=== PATIENT | female | born 1980 | race Caucasian/White ===

== ENCOUNTER 2025-07-01 11:58 | Emergency (ER) | payer OTHER, SELFPAY ==
[2025-07-01 12:01] VITALS: BP 190/110
[2025-07-01 12:35] VITALS: BMI 35.6
--- NOTE | 2025-07-01 13:55 | EDRN ---
Lidya CURIEL in room w/pt at this time.
--- NOTE | 2025-07-01 14:01 | ED.GENMED ---
History of Present Illness
General
Chief Complaint: Abdominal Symptoms
Source: patient
Exam Limitations: none
Time Seen by Provider: 07/01/25 13:51
Nursing documentation reviewed up to this point in time: agreed with
History of Present Illness
History of Present Illness:
45-year-old female with no significant past medical history presenting with a chief complaint of lower abdominal pain described as pressure over the last couple of days. She reports the discomfort as intermittent, with episodes that come and go.
This morning at approximately 8:00 AM, while preparing to shower, she experienced a sudden increase in pain located predominantly on left side, causing her to feel the need to bend over slightly to alleviate it. The intense pain lasted only a few
seconds, but a mild residual pressure remained. She likens this discomfort to ovulation pain. The patient denies nausea, vomiting, diarrhea, constipation, or urinary burning, frequency, or urgency, though she mentions having a sensation of needing
to urinate after just having urinated about 15 minutes ago. Llast menstrual period was on May 31, normal BM this morning.
Past History
Past History
ED Past Medical History: None
ED Past Surgical History: None
Social History
Tobacco: Non-smoker
Alcohol: None
Personal:
Living: with family
Employment: Employed
Review of Systems
Review of Systems
Allergies reviewed?: Yes
All Other Systems: ROS reviewed and negative except as documented in HPI and ROS
Constitutional: Denies fever
Respiratory: Denies trouble breathing
Cardiac: Denies chest pain
ABD/GI: Reports abdominal pain; Denies nausea, vomiting, diarrhea, constipated or anorexia
: Denies dysuria, frequency, flank pain, difficulty voiding or urgency
Musculoskeletal: Reports no symptoms
Skin: Reports no symptoms
Neurological: Reports no symptoms
Phy Exam
Physical Exam
Physical Exam:
GENERAL: No acute distress. A&Ox3.
CONSTITUTIONAL: Afebrile.
EYES: clear, conjunctivae normal
ENMT: moist mucus membranes, Pharynx nl
RESPIRATORY: Regular respirations, nonlabored, lungs clear.
CARDIOVASCULAR: Regular rate and rhythm, no murmurs, no rubs.
GI: Soft, nontender at this time, normal BS
MUSCULOSKELETAL: Moves with ease. Well perfused.
SKIN: Warm, dry, pink
PSYCH: Normal mood and affect. Well kept, interactive and appropriate
NEUROLOGIC: Awake, alert and oriented. No focal neurological deficits
Course
Orders/Labs/Results
Orders:
Orders
07/01/25 14:02
US Pelvis W Transvag Combined Urgent
Comment:
Reason For Exam: pain across lower abdomen
07/01/25 14:03
0.9% Sodium Chloride 1000 ml [Nss] 1,000 ml IV BOLUS
Test Result ONCE
07/01/25 14:24
Complete Blood Count/With Diff Urgent
Comprehensive Metabolic Panel Urgent
HCG, Serum Qualitative Screen Urgent
Lipase Urgent
Urinalysis Reflex To Culture Urgent
Date Specimen was Collected: 07/01/25
Time Specimen was Collected: 14:23
Urine Microscopic Reflex Cult Urgent
Abnormal Lab Results
07/01/25
14:24
Glucose 110 H mg/dl
(70-99)
Urine Ketones 1+ A
(Negative)
Ur Occult Blood Reflex 1+ A
(Negative)
07/01/25 14:24
07/01/25 14:24
Vital Signs
Initial and Last Documented VS:
Initial Vital Signs
Temp Pulse Resp BP Pulse Ox
98.4 F 140 16 190/110 100
07/01/25 12:01 07/01/25 12:01 07/01/25 12:01 07/01/25 12:01 07/01/25 12:01
Last Documented Vital Signs
Temp Pulse Resp BP Pulse Ox
98.4 F 90 16 125/66 100
07/01/25 12:01 07/01/25 14:15 07/01/25 14:15 07/01/25 14:15 07/01/25 14:15
MDM/Problems Addressed
Differential Diagnosis Includes:
The Differential Diagnosis includes, in no particular order and is not limited to:
1. Ovarian cyst
2. Urinary tract infection
3. Mittelschmerz (ovulation pain)
4. Gastroenteritis
5. Appendicitis
6. Pelvic inflammatory disease
7. Kidney stones
8. Endometriosis
9. Ectopic
10. Irritable bowel syndrome
MDM/Problems Addressed:
45-year-old female with no significant past medical history presenting with a chief complaint of lower abdominal pain described as pressure over the last couple of days. She reports the discomfort as intermittent, with episodes that come and go.
This morning at approximately 8:00 AM, while preparing to shower, she experienced a sudden increase in pain located predominantly on left side, causing her to feel the need to bend over slightly to alleviate it. The intense pain lasted only a few
seconds, but a mild residual pressure remained. She likens this discomfort to ovulation pain. The patient denies nausea, vomiting, diarrhea, constipation, or urinary burning, frequency, or urgency, though she mentions having a sensation of needing
to urinate after just having urinated about 15 minutes ago. Llast menstrual period was on May 31, normal BM this morning.
Plan:
1. Obtain a urine sample for urinalysis to rule out a urinary tract infection.
2. Conduct basic laboratory work and HCG
3. Administer intravenous fluids to ensure hydration and facilitate a full bladder for an ultrasound.
4. Perform an abdominal ultrasound to further investigate the cause of abdominal pain.
5. Encourage the patient to follow up with primary care and gynecological appointments as scheduled.
3:00 PM:
CBC normal
CMP normal
hCG negative
UA negative
4:30 PM:
Patient is awaiting ultrasound
Case discussed with Paige Corrales NP who will assume care from this point.
*Pulse Oximetry
SaO2: 100
Oxygen Mode of Delivery: Room air
ED Attending Note
-
Portions of this chart may have been created with voice recognition software.� Occasional wrong word or��sound alike� substitutions may have occurred due to the inherent limitations of voice recognition software.
Discharge Plan
Departure
Referrals:
Payal Esquivel PA-C [Family Provider]
Interventions
Interventions:
*Risk Screen - Suicide Last Done: 07/01/25 12:01
*General Assessment Last Done: 07/01/25 12:35
*Neglect/Abuse Screening Last Done: 07/01/25 12:01
*ED- Fall Risk Assessment Last Done: 07/01/25 12:35
*ED COVID-19 Vaccine History Last Done: 07/01/25 12:35
BZ-Iddncd-Rverioqtkj Assessment Last Done: 07/01/25 12:41
Discharge Date and Time
Print Language: EQUATORIAL GUINEAN
[2025-07-01 14:15] VITALS: BP 125/66
[2025-07-01] MEDS: NSS 1000 IV (14:22)
[2025-07-01 14:33] LABS: Urine Character Clear (Clear)
[2025-07-01 14:34] LABS: Hematocrit 43.0 % (37.0-47.0); Hemoglobin 14.2 g/dL (12.0-16.0); Mean Corp Hgb Conc. 33.0 g/dL (33.0-37.0); Mean Corpuscular Volume 89.0 fL (81.0-99.0); Nucleated Red Blood Cells % 0 %; Platelet Count 313 10^3/uL (130-400); Red Cell Dist. Width 13.0 % (11.5-14.5)
[2025-07-01 14:42] LABS: Urine Squamous Cell 16-20 /LPF (Few)
[2025-07-01 14:43] LABS: Urine Red Blood Cell 0-2 /HPF (0-2); Urine White Cell 0-2 /HPF (0-5)
[2025-07-01 14:46] LABS: HCG, Serum Qualitative Screen Negative
[2025-07-01 14:55] LABS: ALT (SGPT) 18 U/L (0-35); AST (SGOT) 20 U/L (14-36); Albumin 4.5 g/dl (3.5-5.0); Alkaline Phosphatase 66 U/L (38-126); Blood Urea Nitrogen 9 mg/dl (7-17); Calcium 9.5 mg/dl (8.4-10.2); Carbon Dioxide 29 mmol/L (22-30); Chloride 107 mmol/L (98-107); Estimated Creatinine Clearance > 125 ml/min; Glucose 110 mg/dl (70-99); Lipase 93 U/L (23-300); Potassium 4.5 mmol/L (3.5-5.1); Sodium 140 mmol/L (135-145); Total Protein 7.3 g/dl (6.3-8.2); eGFR > 60.00
== END 2025-07-01 19:06 | disposition home or self-care (01) ==
LOC: EMR 11:58
PROVIDERS: Registered Nurse; EMERGENCY PHYSICIAN Emergency Medicine; FAMILY PHYSICIAN Physician Assistant
DX: R10.30 Lower abdominal pain, unspecified (principal)
CPT/HCPCS: 99284; 76830; 76856; 80053; 81003; 81015; 83690; 84703; 85025

== ENCOUNTER 2025-08-10 07:24 | Emergency (ER) | payer OTHER, SELFPAY ==
[2025-08-10 07:32] VITALS: BP 150/91
--- NOTE | 2025-08-10 08:04 | ED.GENMED ---
History of Present Illness
General
Chief Complaint: Anxiety
Source: patient
Exam Limitations: none
Time Seen by Provider: 08/10/25 07:46
Nursing documentation reviewed up to this point in time: agreed with
History of Present Illness
History of Present Illness:
Patient is a 45-year-old female with past medical history of anxiety and mitral valve prolapse. 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 She has had chronic issues with
anxiety however has not had a primary care provider or therapist. She has never been evaluated for anxiety. She saw primary care physician yesterday for the first time and reviewed her anxiety problem with her. She was prescribed fluoxetine and
alprazolam. She did take a dose of fluoxetine last night for the first time. She was also given a prescription for an echocardiogram.
She presents to the ER because yesterday she felt very anxious throughout last night she describes feeling her heart racing she felt very hot and felt a lot of tension and stress. She felt numbness and tingling in her hands. She had no associated
shortness of breath. She has reports for' a long time' she has had chest pressure and felt this was from her mitral valve prolapse.
She did not take her present because she was concerned about taking fluoxetine along with this new medication.
Past History
Past History
ED Past Medical History: None
ED Past Surgical History: None
Social History
Tobacco: Non-smoker
Alcohol: None
Personal:
Living: with family
Employment: Employed
Phy Exam
General Physical Exam
General Presentation: no apparent distress
General age: appears stated age
General Skin: warm and dry
General Habitus: normal
General Mental: alert
General Hydration: appears well hydrated
Cardiovascular Exam
Cardiovascular Exam: regular rate/rhythm, no murmur and normal peripheral pulses
Pulmonary Exam
Pulmonary Exam: lungs clear and no respiratory distress
Neurological Exam
Neurological Exam: alert
Musculoskeletal Exam
Musculoskeletal Exam: full ROM
Skin Exam
Skin Exam: normal color and no petechia
Course
Orders/Labs/Results
Orders:
Orders
08/10/25 07:26
Electrocardiogram (*1) Urgent
Reason for Study: Bradycardia / Tachycardia
EKG- Treatment ONCE
08/10/25 08:07
Basic Metabolic Panel Urgent
Complete Blood Count/With Diff Urgent
TSH Reflex To Free T4 Urgent
Troponin I Urgent
Abnormal Lab Results
08/10/25
08:07
Chloride 108 H mmol/L
(98-107)
Glucose 109 H mg/dl
(70-99)
08/10/25 08:07
08/10/25 08:07
Vital Signs
Initial and Last Documented VS:
Initial Vital Signs
Temp Resp BP Pulse Ox
98.2 F 16 150/91 99
08/10/25 07:32 08/10/25 07:32 08/10/25 07:32 08/10/25 07:32
Last Documented Vital Signs
Temp Pulse Resp BP Pulse Ox
98.2 F 80 14 122/74 100
08/10/25 07:32 08/10/25 10:45 08/10/25 10:45 08/10/25 10:00 08/10/25 10:45
MDM/Problems Addressed
Differential Diagnosis Includes:
Not limited to acute panic attack, anxiety, less likely ACS, arrhythmia
MDM/Problems Addressed:
Symptoms are consistent with anxiety. Patient has chronic anxiety for years however has never had this addressed. As documented she did see a primary care provider yesterday for the first time and was started on fluoxetine and given a prescription
for alprazolam as needed. She has a history of mitral valve prolapse years ago and was also given a prescription for an echo by her primary care provider.
Symptoms are likely anxiety she is very anxious here on arrival she has no cardiac history and no known cardiac risk factors or family history. Cardiac troponin is negative labs unremarkable will check a TSH and plan to discharge home with
outpatient cardiology as she does have mitral valve prolapse and though has an echo scheduled has not seen cardiology since childhood.
Vitals are stable she has been monitored and remains in normal sinus rhythm here in the ER no arrhythmia.
Her is a patient of Dr. Hernandez and she would like to follow-up with her as well.
Chronic conditions affecting care:
Anxiety, after valve prolapse
*Pulse Oximetry
SaO2: 99
Oxygen Mode of Delivery: Room air
Patient hypoxic: no
*Critical Care Note
Total Time (30-74mins, 75-104mins- exclusive of procedures): Not Applicable
ED Attending Note
-
Portions of this chart may have been created with voice recognition software.� Occasional wrong word or��sound alike� substitutions may have occurred due to the inherent limitations of voice recognition software.
Discharge Plan
Departure
Patient Disposition: Home (Routine Discharge)
Date of Disposition: 08/10/25
Time of Disposition: 10:53
Patient with high blood pressure during this ER visit?: Yes
Condition: Fair
Covid-19: Not Applicable
Discharge Problem:
Heart palpitations, Anxiety
Instructions: Anxiety, Adult (DC), Palpitations - ED (DC), BLOOD PRESSURE
Referrals:
Adrianne Terrell CRNP [Family Provider, Internal Medicine]
Chandan Molina MD [Active, Cardiology]
Activity Restrictions/Additional Instructions:
As discussed, continue to take your prescribed fluoxetine daily. You may take alprazolam as needed as previously prescribed. Please continue to follow-up closely with your family doctor and therapist. In addition please follow-up with cardiology
for continued monitoring for palpitations.
please give the office a call today to schedule an appointment as soon as possible. Return if any worsening of symptoms. Avoid caffeine, alcohol, chocolate.
Interventions
Interventions:
*Risk Screen - Suicide Last Done: 08/10/25 07:32
*General Assessment Last Done: 08/10/25 07:51
*Neglect/Abuse Screening Last Done: 08/10/25 07:32
*ED- Fall Risk Assessment Last Done: 08/10/25 07:51
*ED COVID-19 Vaccine History Last Done: 08/10/25 07:51
ED-Psychological Assessment Last Done: 08/10/25 07:51
Discharge Date and Time
Print Language: AUSTRALIAN
[2025-08-10 08:05] VITALS: BP 126/79
[2025-08-10 08:21] LABS: Hematocrit 42.8 % (37.0-47.0); Hemoglobin 14.3 g/dL (12.0-16.0); Mean Corp Hgb Conc. 33.4 g/dL (33.0-37.0); Mean Corpuscular Volume 87.7 fL (81.0-99.0); Nucleated Red Blood Cells % 0 %; Platelet Count 296 10^3/uL (130-400); Red Cell Dist. Width 12.9 % (11.5-14.5)
[2025-08-10 08:57] LABS: Blood Urea Nitrogen 10 mg/dl (7-17); Calcium 9.2 mg/dl (8.4-10.2); Carbon Dioxide 26 mmol/L (22-30); Chloride 108 mmol/L (98-107); Glucose 109 mg/dl (70-99); Potassium 4.6 mmol/L (3.5-5.1); Sodium 139 mmol/L (135-145); Troponin I < 0.012 ng/ml; eGFR > 60.00
[2025-08-10 09:00] VITALS: BP 112/66
[2025-08-10 10:00] VITALS: BP 122/74
== END 2025-08-10 11:19 | disposition home or self-care (01) ==
LOC: EMR 07:24
PROVIDERS: Nurse Practitioner; EMERGENCY PHYSICIAN Emergency Medicine; FAMILY PHYSICIAN Nurse Practitioner Adult Health
DX: R00.2 Palpitations (principal); F41.9 Anxiety disorder, unspecified; I34.1 Nonrheumatic mitral (valve) prolapse
CPT/HCPCS: 99284; 80048; 84443; 84484; 85025; 93005

== ENCOUNTER → 2025-08-11 07:03 | Outpatient (REF) | payer OTHER, SELFPAY | LOC: HWRCS 07:03 | PROVIDERS: ATTENDING PHYSICIAN Nurse Practitioner Adult Health | DX: Z86.79 Personal history of other diseases of the circulatory system (principal); R00.2 Palpitations | CPT/HCPCS: 93306 ==

== ENCOUNTER → 2025-08-17 10:00 | Outpatient (REF) | payer OTHER, SELFPAY | LOC: RCS 10:00 | PROVIDERS: ATTENDING PHYSICIAN Student in an Organized Health Care Education/Training Program; FAMILY PHYSICIAN Nurse Practitioner Adult Health | DX: R00.2 Palpitations (principal) | CPT/HCPCS: 93225; 93226 ==